=== PATIENT | female | born 1990 | race Two or more races ===

== ENCOUNTER 2016-08-29 12:26 | Emergency (ER) | payer MEDICAID, OTHER ==
[2016-08-29] MEDS ORDERED: ONDANSETRON 4 MG VIAL ONE (13:11)
[2016-08-29] MEDS ORDERED: SODIUM CHLORIDE 0.9% 1,000 ML ONE (13:11)
== END 2016-08-29 15:51 | disposition home or self-care (01) ==
LOC: ER 12:26
DX: N30.00 Acute cystitis without hematuria (principal); F14.10 Cocaine abuse, uncomplicated; F15.10 Other stimulant abuse, uncomplicated; F11.10 Opioid abuse, uncomplicated
CPT/HCPCS: 36415; 80053; 80307; 80320; 80329; 81001; 84439; 84443; 84703; 85025; 87088; 96361; 96374